=== PATIENT | female | born 1965 | race Caucasian/White ===

== ENCOUNTER 2018-02-15 08:42 | Day surgery (SDC) | payer OTHER ==
[~2018-02-15] VITALS: Ht 167.6 cm; Wt 78.0 kg
[~2018-02-15 08:42] MED LIST: CYTOTEC200 MCG PO; LATANOPROST2.5 ML BOTH EYES; NOHOMEMEDS; ZOLOFT100 MG PO; ZYRTEC10 M3 PO
[2018-02-15 09:28] VITALS: BP 131/75
[2018-02-15 12:10] VITALS: BP 141/83
== END 2018-02-15 13:00 | disposition home or self-care (01) ==
LOC: SDC 08:42
DX: N95.0 Postmenopausal bleeding (principal); N84.0 Polyp of corpus uteri; R93.8 Abnormal findings on diagnostic imaging of other specified body structures; F41.9 Anxiety disorder, unspecified; F32.9 Major depressive disorder, single episode, unspecified; Z80.3 Family history of malignant neoplasm of breast; Z80.41 Family history of malignant neoplasm of ovary; Z80.0 Family history of malignant neoplasm of digestive organs; Z91.041 Radiographic dye allergy status
CPT/HCPCS: 88305; J0690; J1885; J2250; J2405; J3010